=== PATIENT | female | born 1985 | race Caucasian/White ===

== ENCOUNTER 2017-03-23 19:33 | Outpatient (CLI) | END 2017-03-24 01:52 | disposition home or self-care (01) ==

== ENCOUNTER 2017-04-26 07:10 | Inpatient (IN) | END 2017-04-28 17:20 | disposition home or self-care (01) | DRG 778 ==

== ENCOUNTER 2017-06-05 13:27 | Outpatient (CLI) | END 2017-06-05 15:29 | disposition home or self-care (01) ==

== ENCOUNTER 2017-06-08 13:51 | Outpatient (CLI) | END 2017-06-08 15:50 | disposition home or self-care (01) ==

== ENCOUNTER 2017-06-18 07:22 | Inpatient (IN) | END 2017-06-21 20:45 | disposition home or self-care (01) | DRG 765 ==

== ENCOUNTER 2017-06-24 17:50 | Emergency (ER) | END 2017-06-24 21:40 | disposition home or self-care (01) ==